=== PATIENT | male | born 1950 | race Caucasian/White ===

== ENCOUNTER 2020-11-18 09:15 | Emergency (ER) | payer MEDICARE, OTHER ==
--- NOTE | 2020-11-18 12:10 | EDM.PDOC ---
ED HPI GENERAL MEDICAL PROBLEM - General Chief Complaint: General Stated Complaint: COVID SYMPTOMS Time Seen by Provider: 11/18/20 11:40 Source of Information: Reports: Patient History Limitations: Reports: No Limitations - History of Present Illness INITIAL COMMENTS - FREE TEXT/NARRATIVE: Patient presents to the ED for generalized illness. Starting on patient began having an itchy type cough that had increased on Tuesday and by Tuesday developed a fever of 100.2. This was followed by 2 days of diarrhea. Previous medical history significant for pneumonia and chronic bouts of bronchitis. Patient negative for: Chest pain, shortness of breath, syncope, dizzy lightheaded, nausea vomiting, headache, blurred vision, rashes, or trauma. Positive for: Cough, diarrhea, fever, chills, aches. Onset: Gradual Onset Date: 11/13/20 Duration: Day(s): Location: Reports: Other (Body aches to include thighs hips and back) Quality: Reports: Ache Severity: Moderate Improves with: Reports: Medication (Tylenol) Worsens with: Reports: None Context: Denies: Sick Contact Associated Symptoms: Reports: Cough, Fever/Chills. Denies: Confusion, Chest Pain, Diaphoresis, Headaches, Loss of Appetite, Nausea/Vomiting, Rash Treatments OUTSIDE RIGGER: Reports: Acetaminophen ED ROS GENERAL - Review of Systems Review Of Systems: See Below Constitutional: Reports: Fever, Chills HEENT: Reports: Other (Itchy throat). Denies: Nosebleed Respiratory: Reports: Cough Cardiovascular: Reports: No Symptoms Endocrine: Reports: No Symptoms GI/Abdominal: Reports: Diarrhea (2 days, 4 bouts). Denies: Abdominal Pain, Black Stool, Bloody Stool, Constipation, Decreased Appetite, Difficulty Swallowing, Nausea, Vomiting : Reports: No Symptoms Musculoskeletal: Reports: Other (Generalized body aches including back thighs) Skin: Reports: No Symptoms Neurological: Reports: No Symptoms Psychiatric: Reports: No Symptoms Hematologic/Lymphatic: Reports: No Symptoms Immunologic: Reports: No Symptoms ED EXAM, GENERAL - Physical Exam Exam: See Below Free Text/Narrative:: 70-year-old male presented to the ER, found sitting in the waiting room, laid back personally to bay #2. Patient is alert and oriented 3-3 GCS 4 5 6, skin is pink warm and dry, no apparent distress, speaking in full sentences. Exam Limited By: No Limitations General Appearance: Alert, WD/WN, No Apparent Distress Eye Exam: Bilateral Eye: EOMI, PERRL Ears: Normal External Exam, Normal Canal, Hearing Grossly Normal, Normal TMs Ear Exam: Bilateral Ear: Auricle Normal, Canal Normal, TM normal Nose: Normal Inspection, Normal Mucosa, No Blood. No: Nasal Swelling, Nasal Drainage, Clear Rhinorrhea, Nasal Flaring Throat/Mouth: Normal Inspection, Normal Lips, Normal Teeth, Normal Gums, Normal Oropharynx, Normal Voice, No Airway Compromise Head: Atraumatic, Normocephalic Neck: Normal Inspection, Supple, Non-Tender, Full Range of Motion Respiratory/Chest: No Respiratory Distress, Lungs Clear, Normal Breath Sounds, No Accessory Muscle Use, Chest Non-Tender. No: Crackles, Rales, Rhonchi, Wheezing, Stridor Cardiovascular: Normal Peripheral Pulses, No Edema, No Gallop, No JVD, No Murmur, No Rub, Other (Irregular pulse on palpation) Peripheral Pulses: 2+: Radial (L), Radial (R) GI/Abdominal: Soft, Non-Tender, No Organomegaly, No Distention, No Abnormal Bruit, No Mass, Tender (Left lower quadrant to deep palpation). No: Distended, Guarding, Rigid, Rebound, Hernia, Mass, Hepatomegaly, Splenomegaly Extremities: Normal Inspection, Normal Range of Motion, Non-Tender, Normal Capillary Refill, No Pedal Edema Neurological: Alert, Oriented, Normal Cognition, Normal Gait, Normal Reflexes Psychiatric: Normal Affect, Normal Mood Skin Exam: Warm, Dry, Intact, Normal Color, No Rash Lymphatic: No Adenopathy #1 Interpretation EKG Date: 11/18/20 Course - Vital Signs Last Recorded V/S: Last Vital Signs Temp 98.8 F 11/18/20 12:39 Pulse 63 11/18/20 12:39 Resp 18 11/18/20 12:39 BP 119/49 L 11/18/20 12:39 Pulse Ox 95 11/18/20 12:39 - Orders/Labs/Meds Orders: Active Orders 24 hr Category Date Time Status Peripheral IV Insertion Adult [OM.PC] Routine Oth 11/18/20 12:15 Ordered EKG 12 Lead [EK] Routine Ther 11/18/20 12:18 Ordered Labs: Laboratory Tests 11/18/20 11/18/20 11/18/20 Range/Units 09:50 12:04 12:04 WBC 7.9 (4.0-11.0) K/uL RBC 5.32 (4.50-6.50) M/uL Hgb 16.4 (13.0-18.0) g/dL Hct 47.7 (40.0-54.0) % MCV 90 (76-96) fL MCH 30.8 (27.0-32.0) pg MCHC 34.4 (31.0-35.0) g/dL RDW 13.5 (11.0-16.0) % Plt Count 202 (150-400) K/uL MPV 10.0 (6.0-10.0) fL Neut % (Auto) 60.6 (45.0-70.0) % Lymph % (Auto) 19.9 L (20.0-40.0) % [place] % (Auto) 18.7 H (3.0-10.0) % Eos % (Auto) 0.5 L (1.0-5.0) % Baso % (Auto) 0.3 (0.0-0.5) % Neut # (Auto) 4.77 (2.00-7.50) K/uL Lymph # (Auto) 1.57 (1.50-4.00) K/uL [place] # (Auto) 1.47 H (0.20-0.80) K/uL Eos # (Auto) 0.04 (0.04-0.40) K/uL Baso # (Auto) 0.02 (0.02-0.10) K/uL Sodium 136 (136-145) mmol/L Potassium 3.7 (3.5-5.1) mmol/L Chloride 101 (98-107) mmol/L Carbon Dioxide 26.6 (21.0-32.0) mmol/L Anion Gap 12.1 (5.0-15.0) mmol/L BUN 11 (8-26) mg/dL Creatinine 0.94 (0.70-1.30) mg/dL Est Cr Clr Drug Dosing 77.88 mL/min Estimated GFR (MDRD) > 60 (>60) MLS/MIN BUN/Creatinine Ratio 11.7 (6-25) Glucose 106 H (74-100) mg/dL Calcium 9.4 (8.5-10.1) mg/dL Phosphorus (2.5-4.9) mg/dL Magnesium (1.8-2.4) mg/dL Total Bilirubin 0.7 (0.0-1.0) mg/dL AST 22 (15-37) U/L ALT 39 (12-78) U/L Alkaline Phosphatase 70 (46-116) U/L Total Protein 7.9 (6.4-8.2) g/dL Albumin 4.4 (3.4-5.0) g/dL Globulin 3.5 (2.2-4.2) g/dL Albumin/Globulin Ratio 1.3 (0.8-2.0) SARS CoV-2 RNA Rapid LONI Negative 11/18/20 11/18/20 Range/Units 12:51 12:52 WBC (4.0-11.0) K/uL RBC (4.50-6.50) M/uL Hgb (13.0-18.0) g/dL Hct (40.0-54.0) % MCV (76-96) fL MCH (27.0-32.0) pg MCHC (31.0-35.0) g/dL RDW (11.0-16.0) % Plt Count (150-400) K/uL MPV (6.0-10.0) fL Neut % (Auto) (45.0-70.0) % Lymph % (Auto) (20.0-40.0) % [place] % (Auto) (3.0-10.0) % Eos % (Auto) (1.0-5.0) % Baso % (Auto) (0.0-0.5) % Neut # (Auto) (2.00-7.50) K/uL Lymph # (Auto) (1.50-4.00) K/uL [place] # (Auto) (0.20-0.80) K/uL Eos # (Auto) (0.04-0.40) K/uL Baso # (Auto) (0.02-0.10) K/uL Sodium (136-145) mmol/L Potassium (3.5-5.1) mmol/L Chloride (98-107) mmol/L Carbon Dioxide (21.0-32.0) mmol/L Anion Gap (5.0-15.0) mmol/L BUN (8-26) mg/dL Creatinine (0.70-1.30) mg/dL Est Cr Clr Drug Dosing mL/min Estimated GFR (MDRD) (>60) MLS/MIN BUN/Creatinine Ratio (6-25) Glucose (74-100) mg/dL Calcium (8.5-10.1) mg/dL Phosphorus 3.1 (2.5-4.9) mg/dL Magnesium 1.9 (1.8-2.4) mg/dL Total Bilirubin (0.0-1.0) mg/dL AST (15-37) U/L ALT (12-78) U/L Alkaline Phosphatase (46-116) U/L Total Protein (6.4-8.2) g/dL Albumin (3.4-5.0) g/dL Globulin (2.2-4.2) g/dL Albumin/Globulin Ratio (0.8-2.0) SARS CoV-2 RNA Rapid LONI Meds: Medications Discontinued Medications Generic Name Dose Route Start Last Admin Trade Name Freq PRN Reason Stop Dose Admin Lactated Ringer's 1,000 mls @ 1,000 mls/hr 11/18/20 12:15 11/18/20 12:16 Ringers, Lactated IV 1,000 mls/hr ASDIRECTED HUNTER Administration Sodium Chloride 10 ml 11/18/20 12:15 Sodium Chloride 0.9% 10 Ml Syringe FLUSH ASDIRECTED PRN Keep Vein Open Departure - Departure Time of Disposition: 13:30 Disposition: Home, Self-Care 01 Condition: Good Clinical Impression: Upper respiratory infection, viral - Discharge Information *PRESCRIPTION DRUG MONITORING PROGRAM REVIEWED*: No *COPY OF PRESCRIPTION DRUG MONITORING REPORT IN PATIENT MAXWELL: No Instructions: Viral Gastroenteritis, Adult, [id number] Referrals: PCP,None [Primary Care Provider] - Forms: ED Department Discharge Care Plan Goals: Drink pedialyte until diarrhea is gone. Follow up with primary. Return if nee ded. Sepsis Event Note (ED) - Focused Exam Vital Signs: Vital Signs Temp Pulse Resp BP Pulse Ox 11/18/20 12:39 98.8 F 63 18 119/49 L 95 - My Orders Last 24 Hours: My Active Orders 11/18/20 12:15 Peripheral IV Insertion Adult [OM.PC] Routine 11/18/20 12:18 EKG 12 Lead [EK] Routine - Assessment/Plan Last 24 Hours: My Active Orders 11/18/20 12:15 Peripheral IV Insertion Adult [OM.PC] Routine 11/18/20 12:18 EKG 12 Lead [EK] Routine Assessment:: Assessment and plan: Patient presents with signs and symptoms consistent with a viral illness, however other serious etiologies were considered in this patient including bacterial etiologies (meningitis, otitis, pneumonia, bacteremia, cellulitis, intra-abdominal infection/appendicitis, cellulitis, Lyme's disease etc.) including encephalitis central fevers leukemias or lymphomas. Given the well appearance of the patient back no focal findings suggest any serious bacterial etiologies and normal Covid test, normal CBC, CMP and a well immunized adult I do not believe further work-up is needed in the ED today. Patient understands the concept of a fever of viral etiology and the need for close follow-up with primary care provider. Advised Motrin and Tylenol for fever control as instructed advised to consume Pedialyte as long as the patient has continued diarrhea. Patient may return to the ED sooner for increased fever, any focal symptoms, rash, altered mental status, increased work of breathing, chest pain or inability to tolerate oral intake. COVID-19 (-),history, vitals, exam, labCBC, CMP, EKG, IV, 1000 L R[place], adult upper respiratory viral infection instructions were given with discharge information. All questions were answered to the patient's satisfaction, patient and both understood treatment plan, patient was discharged in stable condition
[2020-11-18] MEDS ORDERED: Sodium Chloride 0.9% 10 ML Syringe FLUSH PRN (12:15)
[2020-11-18] MEDS ORDERED: Lactated Ringers 1,000 ML IV SCH (12:15)
== END 2020-11-18 13:25 | disposition home or self-care (01) ==
LOC: LB.ED 09:15
DX: J06.9 Acute upper respiratory infection, unspecified (principal); Z20.822 Contact with and (suspected) exposure to COVID-19
CPT/HCPCS: 36415; 80053; 83735; 84100; 85025; 93005; 99284-25; J7120; U0002